=== PATIENT | male | born 1990 | race African-American/Black ===

== ENCOUNTER 2017-10-11 03:00 | Inpatient (IN) | payer OTHER ==
[2017-10-11 06:27] VITALS: BP 126/58; PULSE 86; RESP 18; TEMP 97; O2SAT 98
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
[2017-10-11 10:50] LABS: AUTOMATED NEUTROPHIL # 4.4 TH/MM3 (1.8-7.7); BASOPHIL % 0.4 % (0.0-2.0); EOSINOPHIL # 0.4 TH/MM3 (0-0.4); EOSINOPHIL % 4.9 % (0.0-4.0); HEMATOCRIT 36.1 % (39.0-51.0); HEMOGLOBIN 11.8 GM/DL (13.0-17.0); LYMPH % 23.5 % (9.0-44.0); LYMPHOCYTE # 1.7 TH/MM3 (1.0-4.8); MEAN CELL VOLUME 62.5 FL (80.0-100.0); MEAN CORPUSCULAR HEMOGLOBIN 20.5 PG (27.0-34.0); MEAN CORPUSCULAR HGB CONC 32.8 % (32.0-36.0); MONO % 9.6 % (0.0-8.0); MONOCYTE # 0.7 TH/MM3 (0-0.9); NEUT % 61.6 % (16.0-70.0); PLATELET COUNT 197 TH/MM3 (150-450); RED BLOOD COUNT 5.77 MIL/MM3 (4.50-5.90); RED CELL DISTRIBUTION WIDTH 16.3 % (11.6-17.2); WHITE BLOOD COUNT 7.1 TH/MM3 (4.0-11.0)
[2017-10-11 11:18] LABS: % SATURATION IRON PROFILE 16.1 % (20-50); IRON (FE) 42 MCG/DL (65-175); TOTAL IRON BINDING CAPACITY 260 MCG/DL (250-450)
[2017-10-11 11:20] LABS: FERRITIN 114 NG/ML (26-388)
[2017-10-11 17:21] VITALS: BP_SYST 107; BP_SYST 138; BP_DIAS 52; BP_DIAS 66; PULSE 73; RESP 17; TEMP 98.5; O2SAT 100
[2017-10-11] MEDS ORDERED: ALUMINUM/MAGNESIUM/SIMETH 30 ML CUP PO PRN (17:45)
[2017-10-11] MEDS ORDERED: traZODone HCL 50 MG TAB PO PRN (17:45)
[2017-10-11] MEDS ORDERED: LORazepam 2 MG/ML VIAL IM PRN (17:45)
[2017-10-11] MEDS ORDERED: LORazepam 1 MG TAB PO PRN (17:45)
[2017-10-11] MEDS ORDERED: ACETAMINOPHEN 325 MG TAB PO PRN (17:45)
[2017-10-11] MEDS ORDERED: MAGNESIUM HYDROXIDE SUSP 30 ML CUP PO PRN (17:45)
[2017-10-11] MEDS ORDERED: hydrOXYzine HCL 50 MG TAB PO PRN (17:45)
[2017-10-11] MEDS ORDERED: REMOVE OLD NICOTINE PATCH T-DERMAL SCH (21:00)
[2017-10-12 05:41] VITALS: BP 125/70; PULSE 68; RESP 17; TEMP 98; O2SAT 100
[2017-10-12] MEDS ORDERED: NICOTINE 21 MG/24 HR PATCH T-DERMAL SCH (09:00)
--- NOTE | 2017-10-12 11:08 | HHI.DS ---
Psychiatry Discharge Summary Inpatient Psychiatric care?: Yes Advance Directive: No Reason Not Provided: pt doenst have Mental Health AdvanceDirective: No Health Care Proxy: No Admission Admission Date Oct 11, 2017 at 05:45 Admission Diagnosis: (1) Drug-induced mental disorder ICD Code: F19.99 - Other psychoactive substance use, unspecified with unspecified psychoactive substance-induced disorder (2) Cannabis abuse ICD Code: F12.10 - Cannabis abuse, uncomplicated (3) MDMA abuse ICD Code: F16.10 - Hallucinogen abuse, uncomplicated Brief History Mr. Park is a 27-year-old male with a reported history of anxiety who presents in transfer from [facility] under a [place]iel Act. Documentation from [facility] was reviewed. The patient apparently presented to their ER two days prior to coming in on this occasion with the use of MDMA. He returned to the ER last night complaining of paranoia and anxiety. His urine toxicology at the outside hospital was positive for cannabinoids, although it does not appear that MDMA use was specifically assessed. Reviewing our electronic medical record, it appears this is the patient's first visit to [facility]. Patient seen and examined. Chart reviewed. Case discussed with nursing staff. The patient has been no behavioral problem overnight. There has been no evidence of any suicidality or homicidality during the course of observation on the inpatient unit. On my examination this morning, the patient does admit to recent use of cannabis and MDMA. He says that he has been sleeping somewhat poorly as a result, although he did sleep well overnight. He denies any suicidal or homicidal ideation, intent or plan and contracts for safety. He does say that he was feeling somewhat paranoid on initial presentation, although this is much attenuated now, and in fact I can elicit no delusional material at this time. He denies any audiovisual hallucinations. Mood is described as "laid back" and I can elicit no depressive or hypomanic/manic symptoms. The patient does report chronic issues with anxiety, which is generalized and focused primarily on finances. The remainder of the psychiatric ROS is negative. The patient has no physical complaints. Tobacco Use In Past 30 Days: 5 or More Cigarettes/Day Alcohol Use: 2-3 Times Per Week Hospital Course Patient was admitted to a locked, inpatient psychiatric unit. Appropriate precautions were in place throughout patient's hospital stay. Patient was seen and examined on the unit by psychiatry and also visited by counselor. Collateral was obtained from the patient's mother. It was determined that patient's presenting symptoms were likely substance-induced. There was no evidence of any suicidality or homicidality on the inpatient unit. The patient remained in good behavioral control. There has been no evidence of any self- care deficit. On the day of discharge: Patient seen and examined with nurse. Chart reviewed. Case discussed with nurse. No behavioral issues overnight. Case discussed in treatment team with counselor and occupational therapist. On my examination today, the patient feels ready to leave the hospital. He denies any suicidal or homicidal ideation, intent or plan on direct questioning and contracts for safety. No depressive/hypomanic/manic or psychotic symptoms elicited. There is no evidence of impairment in reality construction. He is agreeable to going back to [facility] with his mother. No physical complaints. Suicide and violence risk assessment on day of discharge both suggests lower imminent risk, and the patient's level of function appears to be adequate for outpatient care. Patient has maximized benefit from this inpatient psychiatric hospital stay. He will be discharged into mother's care today, and I have instructed the counselor to endeavor as best as she is able to provide a mental health/chemical dependency referral in [facility]. Patient is also to follow-up with primary care. I have recommended to the patient that he abstain from substances of abuse and pursue chemical dependency evaluation and treatment on an outpatient basis. I have counseled the patient to return to the psychiatric emergency room for any concerning psychiatric symptoms as part of the general safety plan. No prescriptions were given on discharge today. Results Blood Pressure 125 / 70 Vital Signs Date Time Temp Pulse Resp B/P (MAP) Pulse Ox O2 Delivery O2 Flow Rate FiO2 10/12/17 05:41 98.0 68 17 125/70 (88) 100 Laboratory Tests Test 10/11/17 10:30 Hemoglobin 11.8 GM/DL (13.0-17.0) Hematocrit 36.1 % (39.0-51.0) Mean Corpuscular Volume 62.5 FL (80.0-100.0) Mean Corpuscular Hemoglobin 20.5 PG (27.0-34.0) Monocytes (%) (Auto) 9.6 % (0.0-8.0) Eosinophils (%) (Auto) 4.9 % (0.0-4.0) Iron Level 42 MCG/DL (65-175) Percent Iron Saturation 16.1 % (20-50) Thyroid Stimulating Hormone 3rd Gen 0.356 uIU/ML (0.358-3.740) Summary of Major Lab Results Anemia stable. Iron studies not consistent with iron deficiency anemia. TSH low but free T4 within normal limits. Summary of Procedures None done Imaging None done Pending results at discharge: No Medications # of Antipsychotic meds at D/C: 0 Approp Antipsych med options 1 - Minimum of three failed multiple trials of monotherapy. 2 - Documented plan to taper to monotherapy due to previous use of multiple meds OR cross-taper in progress at D/C. 3 - Documentation of augmentation of Clozapine. 4 - Justification other than those listed in allowable values 1-3, document here : Discharge Discharge Date: Oct 12, 2017 Discharge Diagnosis: (1) Drug-induced mental disorder Diagnosis: Principal (resolved) ICD Code: F19.99 - Other psychoactive substance use, unspecified with unspecified psychoactive substance-induced disorder (2) MDMA abuse Diagnosis: Secondary (counseled to quit) ICD Code: F16.10 - Hallucinogen abuse, uncomplicated (3) Cannabis abuse Diagnosis: Secondary (counseled to quit) ICD Code: F12.10 - Cannabis abuse, uncomplicated Pt Condition on Discharge: Stable Discharge Disposition: Discharge Home Discharge Instructions Diet Instructions: As Tolerated, No Restrictions Activities you can perform: Weight Bearing as Rima Scheduled Appointment: as per counselor's notes New Orders: CBC WITH DIFF - 1 Week TSH 3RD GEN - 1 Month Medication Profile: No Active Prescriptions or Reported Meds Discharge Time <= 30 minutes Mental Status Examination Appearance: Appropriate Consciousness: Alert Orientation: x4 Motor Activity: Other (no motor abnormalities noted. No signs of withdrawal noted.) Speech: Unremarkable Language: Adequate Fund of Knowledge: Adequate Attention and Concentration: Adequate Memory: Unremarkable Mood: Appropriate Affect: Appropriate Thought Process & Associations: Intact, Logical, Goal directed, Linear Thought Content: Appropriate Hallucination Type: None Delusion Type: None Suicidal Ideation: No Suicidal Plan: No Suicidal Intention: No Homicidal Ideation: No Homicidal Plan: No Homicidal Intention: No Insight: Fair Judgment: Adequate (fair) Discharge/Advance Care Plan Health Problems: (1) Cannabis abuse (2) MDMA abuse (3) Drug-induced mental disorder Goals to promote your health * To prevent worsening of your condition and complications * To maintain your health at the optimal level Directions to meet your goals Take your medications as prescribed Follow your dietary instruction Follow activity as directed Keep your appointments as scheduled Take your immunizations and boosters as scheduled If your symptoms worsen call your PCP, if no PCP go to Urgent Care Center or Emergency Room For 07/05 questions related to your inpatient stay or results of tests pending at discharge, please contact Dr. Gibran Parada at Smoking is Dangerous to Your Health. Avoid second hand smoking Gibran Parada MD Oct 12, 2017 11:08
== END 2017-10-12 14:55 | disposition home or self-care (01) | DRG 897 ==
LOC: H270 05:45 → H260 18:28
PROVIDERS: ADMIT Psychiatry & Neurology Psychiatry; ATTEND Psychiatry & Neurology Psychiatry
DX: F16.188 Hallucinogen abuse with other hallucinogen-induced disorder (principal); F22 Delusional disorders; D64.9 Anemia, unspecified; F41.1 Generalized anxiety disorder; F12.10 Cannabis abuse, uncomplicated; F17.210 Nicotine dependence, cigarettes, uncomplicated; Z59.0 Homelessness
CPT/HCPCS: 82728; 83540; 83550; 84439; 84443; 85025